=== PATIENT | female | born 1945 | race Caucasian/White ===

== ENCOUNTER → 2024-01-23 10:16 | Outpatient (REF) | payer MEDICARE, BC, SELFPAY ==
[2024-01-23 10:54] LABS: % Basophils 1.2 % (0-2); % Eosinophils 3.7 % (0-6); % Immature Granulocytes 0.6 % (0-0.5); % Lymphocytes 23.3 % (20.5-51.1); % Monocytes 8.7 % (1.7-9.3); % Neutrophils 62.5 % (42.2-75.2); Absolute Basophils 0.1 10^3/uL (0-0.2); Absolute Eosinophils 0.2 10^3/uL (0-0.7); Absolute Lymphocytes 1.2 10^3/uL (1.2-3.4); Absolute Monocytes 0.5 10^3/uL (0.1-0.6); Absolute Neutrophils 3.2 10^3/uL (1.4-6.5); Hemoglobin 14.7 g/dL (12.0-16.0); Mean Corp Hgb Conc. 34.2 g/dL (33.0-37.0); Mean Corpuscular Hgb 29.5 pg (27.0-31.0); Mean Corpuscular Volume 86.2 fL (81.0-99.0); Nucleated Red Blood Cells % 0 %; Platelet Count 123 10^3/uL (130-400); Red Blood Cell Count 4.99 10^6/uL (4.20-5.40); Red Cell Dist. Width 11.9 % (11.5-14.5); White Blood Cell Count 5.2 10^3/uL (4.8-10.8)
[2024-01-23 11:20] LABS: ALT (SGPT) 14 U/L (0-35); AST (SGOT) 24 U/L (14-36); Albumin 4.8 g/dl (3.5-5.0); Alkaline Phosphatase 61 U/L (38-126); Blood Urea Nitrogen 20 mg/dl (7-17); Calcium 9.7 mg/dl (8.4-10.2); Carbon Dioxide 28 mmol/L (22-30); Chloride 100 mmol/L (98-107); Glucose 98 mg/dl (70-99); HDL Cholesterol 78 mg/dl; LDL Cholesterol, Calculated 153 mg/dl; Potassium 4.7 mmol/L (3.5-5.1); Sodium 142 mmol/L (135-145); Total Bilirubin 0.6 mg/dl (0.2-1.3); Total Cholesterol 264 mg/dl (50-199); Total Protein 7.2 g/dl (6.3-8.2); Triglyceride 168 mg/dl (10-149); Very Low Density Lipoprotein 33 mg/dl (0-30); eGFR > 60.00
[2024-01-23 11:57] LABS: TSH 1.42 uIU/ml (0.47-4.68)
[2024-01-23 13:13] LABS: Glycohemoglobin (HgbA1c) 5.3 % (4.0-5.6)
== END ==
LOC: REG 10:16
PROVIDERS: ATTENDING PHYSICIAN Internal Medicine
DX: I10 Essential (primary) hypertension (principal); E78.2 Mixed hyperlipidemia; D69.6 Thrombocytopenia, unspecified; R73.01 Impaired fasting glucose
CPT/HCPCS: 36415; 80053; 80061; 83036; 84443; 85025

== ENCOUNTER → 2025-01-27 09:24 | Outpatient (REF) | payer MEDICARE, BC, SELFPAY ==
[2025-01-27 10:42] LABS: Hematocrit 42.7 % (37.0-47.0); Hemoglobin 14.3 g/dL (12.0-16.0); Mean Corp Hgb Conc. 33.5 g/dL (33.0-37.0); Mean Corpuscular Volume 88.6 fL (81.0-99.0); Nucleated Red Blood Cells % 0 %; Platelet Count 130 10^3/uL (130-400); Red Cell Dist. Width 12.0 % (11.5-14.5)
[2025-01-27 10:54] LABS: Urine Character Clear (Clear)
[2025-01-27 11:09] LABS: Urine White Cell 0-2 /HPF (0-5)
[2025-01-27 11:10] LABS: Urine Red Blood Cell 0-2 /HPF (0-2)
[2025-01-27 15:33] LABS: TSH 1.32 uIU/ml (0.47-4.68)
[2025-01-27 16:16] LABS: ALT (SGPT) 17 U/L (0-35); AST (SGOT) 22 U/L (14-36); Albumin 4.5 g/dl (3.5-5.0); Alkaline Phosphatase 61 U/L (38-126); Blood Urea Nitrogen 16 mg/dl (7-17); Calcium 9.5 mg/dl (8.4-10.2); Carbon Dioxide 26 mmol/L (22-30); Chloride 104 mmol/L (98-107); Glucose 98 mg/dl (70-99); HDL Cholesterol 67 mg/dl; LDL Cholesterol, Calculated 172 mg/dl; Potassium 5.2 mmol/L (3.5-5.1); Sodium 135 mmol/L (135-145); Total Protein 7.0 g/dl (6.3-8.2); Very Low Density Lipoprotein 29 mg/dl (0-30); eGFR > 60.00
== END ==
LOC: REG 09:24
PROVIDERS: ATTENDING PHYSICIAN Internal Medicine
DX: E78.2 Mixed hyperlipidemia (principal); D69.6 Thrombocytopenia, unspecified; M15.9 Polyosteoarthritis, unspecified
CPT/HCPCS: 36415; 80053; 80061; 81003; 81015; 84443; 85025